=== PATIENT | male | born 1945 | race Caucasian/White ===

== ENCOUNTER 2022-03-19 13:57 | Emergency (ER) | payer MEDICARE, OTHER ==
[2022-03-19] MEDS ORDERED: Ketorolac 30 MG/ML SDV IM ONE (14:52)
[2022-03-19] MEDS ORDERED: Ketorolac 30 MG/ML SDV ONE (15:10)
[2022-03-19] MEDS ORDERED: Acetaminophen/HYDROcodone 325-5 MG Tab PO ONE (15:12)
== END 2022-03-19 15:38 | disposition home or self-care (01) ==
LOC: LB.ED 13:57
DX: S89.92XA Unspecified injury of left lower leg, initial encounter (principal); Z88.5 Allergy status to narcotic agent; W10.9XXA Fall (on) (from) unspecified stairs and steps, initial encounter
CPT/HCPCS: 73562; 96372; 99281; 99283; A9270; J1885